=== PATIENT | female | born 1965 | race Caucasian/White ===

== ENCOUNTER 2019-04-02 20:56 | Emergency (ER) | payer MEDICAID | END 2019-04-02 21:32 | disposition home or self-care (01) | LOC: ER FS 20:56 ==

== ENCOUNTER 2019-04-04 14:18 | Emergency (ER) | payer MEDICAID ==
[~2019-04-04] VITALS: Ht 172.7 cm; Wt 83.6 kg
[~2019-04-04 14:18] MED LIST: ESTR0.9T PO; HYDR1CAP14; HYDR25CA5 PO; LEVO125T6 PO; LEVO137T24; MELOXICAN PO; META800T5 PO; NITR-65 PO; VITA1CAP59
--- NOTE | 2019-04-04 14:47 | ED GU-Female ---
General Chief Complaint: - Urinary Stated Complaint: POSS UTI Source: patient Exam Limitations: no limitations History of Present Illness Date Seen by Provider: Apr 04, 2019 Time Seen by Provider: 14:34 Initial Comments Here with report of possible urinary tract infection. States that she Feels full and the bladder. She was seen 2 days ago at her [place] location and prescribed medicine for yeast vaginitis. She finished her last dose of that this morning. She just wanted to be sure that she did not have a urinary tract infection. Denies fevers, nausea, vomiting or diarrhea. Aside from the bladder fullness, she does not have any significant pain vaginally currently. Timing/Duration: changing over time, other (3 days) Severity/Quality: mild, other (fullness) Location: suprapubic Radiation: none Activities at Onset: none Associated Symptoms: abdominal pain; No dysuria, No fever/chills, No loss of bladder control, No nausea/vomiting, No urinary frequency Allergies and Home Medications Allergies Coded Allergies: Antihistamines (Unverified Allergy, 07/22/10) Iodine (Unverified Allergy, 07/22/10) Home Medications Estrogens,Conjugated 0.9 Mg Tablet, 0.9 MG PO DIALY, (Reported) Hydroxyzine Pamoate 25 Mg Capsule, 25 MG PO Q6H FOR ANXIETY Prescribed by: GAURANG AUGUSTINE on 07/22/10958 Levothyroxine Sodium 125 Mcg Tablet, 135.5 MG PO DAILY, (Reported) Metaxalone 800 Mg Tablet, 800 MG PO TID, (Reported) Nitrofurantoin/Nitrofuran Mac 100 Mg Capsule, 1 EACH PO BID FOR INFECTION Prescribed by: GAURANG AUGUSTINE on 07/22/10958 [Meloxican] , 15 MG PO DAILY, (Reported) Patient Home Medication List Home Medication List Reviewed: Yes Review of Systems Review of Systems Constitutional: chills; No fever Respiratory: no symptoms reported Cardiovascular: no symptoms reported Gastrointestinal: see HPI Genitourinary: see HPI Psychiatric/Neurological: No Symptoms Reported Past Marsint-[id number]-Zudxwx Hx Past Med/Social Hx: Reviewed Nursing Past Med/Soc Hx Patient Social History Alcohol Use: Denies Use Recreational Drug Use: No Smoking Status: Current Everyday Smoker Type Used: Cigarettes Recent Hopitalizations: Yes (BACK SURG ) Past Medical History Surgeries: Yes Hysterectomy Respiratory: No Cardiac: No Neurological: No Reproductive Disorders: Yes Genitourinary: No Gastrointestinal: No Musculoskeletal: Yes Endocrine: Yes Hypothyroidsim HEENT: No Cancer: No Psychosocial: Yes (BIPOLAR) Anxiety Integumentary: No Blood Disorders: Yes Family Medical History Reviewed Nursing Family Hx No Pertinent Family Hx Physical Exam Vital Signs Vital Signs - First Documented 04/04/19 14:23 Temp 37.0 Pulse 97 Resp 18 B/P (MAP) 126/82 (97) Pulse Ox 97 O2 Delivery Room Air Capillary Refill : Height, Weight, BMI Height: '" Weight: lbs. oz. kg; 26.00 BMI Method:Stated General Appearance: WD/WN, no apparent distress Cardiovascular: regular rate, rhythm, no murmur Respiratory: lungs clear, normal breath sounds Gastrointestinal: non tender, soft Neurologic/Psychiatric: alert, oriented x 3 Progress/Results/Core Measures Suspected Sepsis SIRS Temperature: Pulse: Respiratory Rate: Blood Pressure / Mean: Results/Orders Lab Results Laboratory Tests Test 04/04/19 14:34 Range/Units Urine Color YELLOW Urine Clarity CLEAR Urine pH 6 5-9 Urine Specific [place] 1.010 L 1.016-1.022 Urine Protein NEGATIVE NEGATIVE Urine Glucose (UA) NEGATIVE NEGATIVE Urine Ketones NEGATIVE NEGATIVE Urine Nitrite NEGATIVE NEGATIVE Urine Bilirubin NEGATIVE NEGATIVE Urine Urobilinogen NORMAL NORMAL MG/DL Urine Leukocyte Esterase NEGATIVE NEGATIVE Urine RBC (Auto) 1+ H NEGATIVE Urine RBC 0-2 /HPF Urine WBC RARE /HPF Urine Crystals NONE /LPF Urine Bacteria NEGATIVE /HPF Urine Casts NONE /LPF Urine Mucus NEGATIVE /LPF Urine Culture Indicated NO My Orders Orders - PETRA KIDD MD Ua Culture If Indicated (04/04/19 14:29) Vital Signs/I&O 04/04/19 14:23 Temp 37.0 Pulse 97 Resp 18 B/P (MAP) 126/82 (97) Pulse Ox 97 O2 Delivery Room Air Capillary Refill : Progress Note : Progress Note Seen and evaluated. UA ordered. Patient adamant that she just really wants to check out the UA and is not really wanting anything else done. Monitor patient. 1542: UA negative. Discharged home with return precautions. Patient verbalize understanding instructions and agreement with plan. Departure Impression Primary Impression: Suprapubic abdominal pain Disposition: 01 HOME, SELF-CARE Condition: Improved Departure-Patient Inst. Decision time for Depature: 15:42 Referrals: NO,LOCAL PHYSICIAN (PCP/Family) Primary Care Physician Patient Instructions: Acute Pelvic Pain (DC) Add. Discharge Instructions: All discharge instructions reviewed with patient and/or family. Voiced understanding. You may still be healing from the yeast infection. Follow-up with your Dr. in a few days for recheck. Return for worse pain, fever, vomiting, weakness, breathing problems or other concerns as needed. Drink plenty of fluids. PETRA KIDD MD Apr 04, 2019 14:47
[2019-04-04 14:52] LABS: BILIRUBIN,URINE NEGATIVE (NEGATIVE); CLARITY,URINE CLEAR; COLOR,URINE YELLOW; GLUCOSE, URINE (UA) NEGATIVE (NEGATIVE); KETONES,URINE NEGATIVE (NEGATIVE); LEUKOCYTE ESTERASE ,URINE NEGATIVE (NEGATIVE); NITRITE,URINE NEGATIVE (NEGATIVE); PH,URINE 6 (5-9); PROTEIN,URINE NEGATIVE (NEGATIVE); UROBILINOGEN,URINE NORMAL (NORMAL)
[2019-04-04 15:31] LABS: BACTERIA,URINE NEGATIVE /HPF; RBC,URINE 0-2 /HPF; WBC,URINE RARE /HPF
[2019-04-04 15:47] VITALS: BP 126/82
== END 2019-04-04 15:47 | disposition home or self-care (01) ==
LOC: EDUNIT# 14:18 → ER 14:19
DX: R10.30 Lower abdominal pain, unspecified (principal); E03.9 Hypothyroidism, unspecified; F41.9 Anxiety disorder, unspecified; F31.9 Bipolar disorder, unspecified; F17.210 Nicotine dependence, cigarettes, uncomplicated; Z88.8 Allergy status to other drugs, medicaments and biological substances; Z90.710 Acquired absence of both cervix and uterus
CPT/HCPCS: 81000; 99282